=== PATIENT | male | born 1950 | race Caucasian/White ===

== ENCOUNTER 2023-08-09 17:01 | Emergency (ER) | payer OTHER ==
[~2023-08-09] VITALS: Ht 177.8 cm; Wt 106.6 kg
[~2023-08-09 17:01] MED LIST: AEC81 PO; AMLO5TAB4 PO; ASCO100031 PO; ATOR40TA69 PO; CHOL200059 PO; CLOP-31 PO; FAMO20TA8 PO; HYDR25TA PO; LISI10TA24 PO; METO-408 PO; NINT150C PO; TAMS-1 PO
[2023-08-09 17:55] LABS: BASOPHILS # (AUTO) 0.05 K/uL (0.00-0.20); BASOPHILS % (AUTO) 0.6 % (0.0-5.0); EOSINOPHILS # (AUTO) 0.15 K/uL (0.00-0.70); EOSINOPHILS % (AUTO) 1.9 % (0.0-8.0); HEMATOCRIT 40.5 % (42-54); IMMATURE GRANULOCYTE ABSOLUTE 0.02 K/uL (0-1); LYMPHOCYTES # (AUTO) 1.1 K/uL (1.0-4.8); LYMPHOCYTES % (AUTO) 14.3 % (21.0-51.0); MEAN CORPUSCULAR HEMOGLOBIN 30.5 pg (27.0-33.0); MEAN CORPUSCULAR HGB CONC 32.8 g/dL (32.0-36.0); MEAN CORPUSCULAR VOLUME 92.9 fL (79-99); MONOCYTES # (AUTO) 0.7 K/uL (0.1-1.0); MONOCYTES % (AUTO) 8.9 % (3.0-13.0); NEUTROPHILS # (AUTO) 5.8 K/uL (1.8-7.7); PLATELET COUNT (AUTO) 221 K/uL (130-400); RED BLOOD CELL COUNT(AUTO) 4.36 MIL/uL (4.50-6.20); RED CELL DISTRIBUTION WIDTH 12.6 % (11.0-15.5); WHITE BLOOD COUNT (AUTO) 7.8 K/uL (4.8-10.8)
[2023-08-09 18:08] LABS: CREATININE 1.3 mg/dL (0.5-1.5); POTASSIUM 4.1 mmol/L (3.5-5.1)
[2023-08-09 18:12] LABS: ALBUMIN 2.8 g/dL (3.5-5.0); BILIRUBIN,TOTAL 0.8 mg/dL (0.2-1.0); TOTAL PROTEIN, SERUM 7.2 g/dL (6.0-8.3)
[2023-08-09] MEDS ORDERED: CEFTRIAXONE 1G VIAL IVPB ONE (18:30)
[2023-08-09] MEDS ORDERED: 0.9%NACL 1000ML 1,000 ML IV STA (18:55)
[2023-08-09 19:07] LABS: ERYTHROCYTE SEDIMENTATION RATE 100 MM/HR (0-20)
[2023-08-09] MEDS ORDERED: CEPH500B PO (19:18)
[2023-08-09 19:33] VITALS: BP 158/99; PULSE 93; RESP 16; O2SAT 98
[2023-08-12] MEDS ORDERED: METO-408 PO (22:37)
[2023-08-13] MEDS ORDERED: LEVO750T39 PO (10:28)
== END 2023-08-09 20:11 | disposition home or self-care (01) ==
LOC: EDH 17:01
DX: L03.314 Cellulitis of groin (principal); R18.8 Other ascites; E87.1 Hypo-osmolality and hyponatremia; I10 Essential (primary) hypertension; Z79.02 Long term (current) use of antithrombotics/antiplatelets; Z79.82 Long term (current) use of aspirin; Z79.899 Other long term (current) drug therapy; Z88.5 Allergy status to narcotic agent
CPT/HCPCS: 99285; 96365; 80053; 85025; 85651; 87040 ×2; 83605; 36415; 76882; J0696

== ENCOUNTER → 2023-09-13 | Outpatient (CLI) | payer OTHER ==
[~2023-09-13] MED LIST changes: -AMLO5TAB4 PO; -CLOP-31 PO; -FAMO20TA8 PO; -HYDR25TA PO; +LEVO750T39 PO; -LISI10TA24 PO; -NINT150C PO; -TAMS-1 PO
== END | disposition home or self-care (01) ==
LOC: RAH 09:46
PROVIDERS: ATTEND Family Medicine
DX: I71.42 Juxtarenal abdominal aortic aneurysm, without rupture (principal); I10 Essential (primary) hypertension; Z98.890 Other specified postprocedural states
CPT/HCPCS: 76770; 93975

== ENCOUNTER → 2024-01-21 | Outpatient (CLI) | payer OTHER | END | disposition home or self-care (01) | LOC: RAH 11:26 | PROVIDERS: ATTEND Family Medicine | DX: I71.42 Juxtarenal abdominal aortic aneurysm, without rupture (principal) | CPT/HCPCS: 76775 ==

== ENCOUNTER → 2024-02-11 | Outpatient (CLI) | payer OTHER | END | disposition home or self-care (01) | LOC: RAH 13:02 | PROVIDERS: ATTEND Chiropractor | DX: I51.7 Cardiomegaly (principal); I25.9 Chronic ischemic heart disease, unspecified | CPT/HCPCS: 93306 ==

== ENCOUNTER → 2024-02-20 | Outpatient (CLI) | payer OTHER | END | disposition home or self-care (01) | LOC: RAH 09:01 | PROVIDERS: ATTEND Family Medicine | DX: I71.43 Infrarenal abdominal aortic aneurysm, without rupture (principal); Z95.1 Presence of aortocoronary bypass graft | CPT/HCPCS: 76775 ==

== ENCOUNTER → 2024-07-23 | Outpatient (CLI) | payer OTHER ==
[2024-07-23 14:22] LABS: BASOPHILS # (AUTO) 0.07 K/uL (0.00-0.20); EOSINOPHILS # (AUTO) 0.23 K/uL (0.00-0.70); EOSINOPHILS % (AUTO) 3.3 % (0.0-8.0); HEMATOCRIT 40.1 % (42-54); IMMATURE GRANULOCYTE ABSOLUTE 0.01 K/uL (0-1); LYMPHOCYTES # (AUTO) 1.6 K/uL (1.0-4.8); LYMPHOCYTES % (AUTO) 23.8 % (21.0-51.0); MEAN CORPUSCULAR HGB CONC 31.4 g/dL (32.0-36.0); MEAN CORPUSCULAR VOLUME 95.5 fL (79-99); MONOCYTES # (AUTO) 0.6 K/uL (0.1-1.0); MONOCYTES % (AUTO) 8.9 % (3.0-13.0); NEUTROPHILS # (AUTO) 4.3 K/uL (1.8-7.7); NEUTROPHILS % (AUTO) 62.9 % (40.0-77.0); PLATELET COUNT (AUTO) 194 K/uL (130-400); RED CELL DISTRIBUTION WIDTH 14.6 % (11.0-15.5); WHITE BLOOD COUNT (AUTO) 6.9 K/uL (4.8-10.8)
[2024-07-23 14:26] LABS: CREATININE 1.1 mg/dL (0.5-1.3)
== END | disposition home or self-care (01) ==
LOC: LAB 13:25
PROVIDERS: ATTEND Family Medicine
DX: I71.42 Juxtarenal abdominal aortic aneurysm, without rupture (principal); Z98.890 Other specified postprocedural states; Z86.79 Personal history of other diseases of the circulatory system
CPT/HCPCS: 36415; 80048; 85025

== ENCOUNTER → 2024-07-27 | Outpatient (CLI) | payer OTHER ==
[~2024-07-27] MED LIST changes: +IOHEXOL 350 MG/ML 100ML INFUS..BTL IV ONE
== END | disposition home or self-care (01) ==
LOC: RAH 10:53
PROVIDERS: ATTEND Family Medicine
DX: I71.42 Juxtarenal abdominal aortic aneurysm, without rupture (principal); N32.89 Other specified disorders of bladder; I70.0 Atherosclerosis of aorta; R16.0 Hepatomegaly, not elsewhere classified; K57.30 Diverticulosis of large intestine without perforation or abscess without bleeding; J84.9 Interstitial pulmonary disease, unspecified; J84.10 Pulmonary fibrosis, unspecified; M47.815 Spondylosis without myelopathy or radiculopathy, thoracolumbar region; Z98.890 Other specified postprocedural states; Z86.79 Personal history of other diseases of the circulatory system
CPT/HCPCS: 74174; Q9967

== ENCOUNTER → 2024-08-04 | Outpatient (CLI) | payer OTHER ==
[~2024-08-04] MED LIST changes: -IOHEXOL 350 MG/ML 100ML INFUS..BTL IV ONE
== END | disposition home or self-care (01) ==
LOC: RAH 07:43
PROVIDERS: ATTEND Physician Assistant
DX: I71.42 Juxtarenal abdominal aortic aneurysm, without rupture (principal); I10 Essential (primary) hypertension; Z86.79 Personal history of other diseases of the circulatory system; Z98.890 Other specified postprocedural states
CPT/HCPCS: 76770; 76775; 93975

== ENCOUNTER → 2025-10-22 | Outpatient (CLI) | payer OTHER ==
[~2025-10-22] MED LIST changes: -ASCO100031 PO; +ASCO10004 PO; -LEVO750T39 PO; +LEVO750T90 PO
--- NOTE | 2025-10-22 15:30 | HMCIMG ---
EXAM Abdominal aortic ultrasound with Doppler. HISTORY Known abdominal aortic aneurysm. Follow-up evaluation. COMPARISON Abdominal aortic ultrasound dated 08/04/2024, with no prior report or study available. TECHNIQUE Grayscale and Doppler ultrasound evaluation of the abdominal aorta and iliac arteries was performed. Portions of the examination were limited by bowel gas. FINDINGS Abdominal Aorta The proximal abdominal aorta is obscured by overlying bowel gas. The mid abdominal aorta is also obscured and not well visualized. The distal abdominal aorta demonstrates aneurysmal dilation with stent measuring up to approximately 8.0 x 8.8 cm in maximal transverse dimensions over a length of approximately 7.6 cm. The aortic bifurcation measures approximately 8.0 x 8.8 cm with an aneurysmal segment length of approximately 7.6 cm. Mural thrombus is present within the aneurysm sac. Color Doppler demonstrates patent flow within the residual lumen. Common Iliac Arteries The right common iliac artery with stent measures approximately 2.2 x 2.1 x 2.1 cm. The left common iliac artery with stent measures approximately 1.5 x 1.5 x 1.6 cm. No definite aneurysm of the common iliac arteries is identified. Doppler flow is present bilaterally. Additional Findings Visualization is limited due to increased intestinal air. IMPRESSION * Large distal abdominal aortic aneurysm measuring up to approximately 8.8 cm in maximal diameter with associated mural thrombus. * Limited evaluation of the proximal and mid abdominal aorta due to increased intestinal air. * No definite common iliac artery aneurysm identified. RECOMMENDATIONS Given the aneurysm size greater than 5.5 cm, urgent vascular surgery consultation is recommended, in accordance with ACR Appropriateness Criteria. Cross-sectional imaging with contrast-enhanced CT angiography of the abdomen and pelvis is recommended for further characterization, surgical planning, and assessment of extent. /[place]
--- NOTE | 2025-10-22 16:21 | HMCIMG ---
EXAM Renal ultrasound with Doppler evaluation of the renal arteries. HISTORY Hypertension. History of abdominal aortic aneurysm. Evaluate for renal artery stenosis. COMPARISON None. TECHNIQUE Grayscale ultrasound evaluation of the kidneys was performed with color and spectral Doppler assessment of the main renal arteries and intrarenal segmental arteries. FINDINGS Right Kidney The right kidney measures approximately 9.7 x 4.6 x 3.6 cm. Renal cortical thickness and echogenicity are preserved. No hydronephrosis is identified. Left Kidney The left kidney measures approximately 11.3 x 5.6 x 5.3 cm. Renal cortical thickness and echogenicity are preserved. No hydronephrosis is identified. Renal Arteries Peak systolic velocity within the abdominal aorta measures approximately 102 cm/s. The right renal artery peak systolic velocity measures approximately 125 cm/s with a lepiy-gr-[id number] ratio of approximately 1.2. The left renal artery peak systolic velocity measures approximately 239 cm/s with a ornzr-sw-ddirmv ratio of approximately 2.3. Intrarenal Doppler Waveforms within the segmental arteries of left kidney demonstrate tardus-parvus morphology involving the mid and lower poles. Additional Findings Visualization was partially limited due to increased intestinal air. IMPRESSION * Elevated peak systolic velocity and qvtrm-xk-xabelt ratio within the left renal artery, concerning for hemodynamically significant left renal artery stenosis. * Normal right renal artery velocities without evidence of hemodynamically significant right renal artery stenosis. 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 RECOMMENDATIONS Further evaluation with contrast-enhanced CT angiography or MR angiography of the renal arteries is recommended for definitive characterization, in accordance with ACR Appropriateness Criteria. Nephrology or vascular surgery consultation may be considered based on clinical correlation and blood pressure control. /[place]
== END | disposition home or self-care (01) ==
LOC: RAH 09:41
PROVIDERS: ATTEND Family Medicine
DX: I71.42 Juxtarenal abdominal aortic aneurysm, without rupture (principal); I71.40 Abdominal aortic aneurysm, without rupture, unspecified; D64.9 Anemia, unspecified; I25.10 Atherosclerotic heart disease of native coronary artery without angina pectoris; L03.90 Cellulitis, unspecified
CPT/HCPCS: 76775; 93975